=== PATIENT | male | born 1975 | race Caucasian/White ===

== ENCOUNTER 2023-03-10 12:59 | Outpatient (OUT) | payer OTHER, SELFPAY ==
--- NOTE | 2023-03-10 15:56 | PE_ITS ---
[address] [address] Patient Name: EUSEBIO WALLACE MRN: [id number] date: 1975 Sex: M Assigned Patient Location: PETCT Current Patient Location: PETCT Accession/Order Number: [id number] Exam Date: 03/10/2023 15:56 Report Date: 03/12/2023 10:21 At the request of: JOHNATHON ALMARAZ Procedure: PET skull to mid thigh NUCLEAR MEDICINE PET/CT HISTORY: Metastatic disease of unknown primary. COMPARISON: CT neck 01/07/2023. METHOD: 14.7 mCi of F-18 FDG was administered intravenously. PET images were obtained from the skull base through the midthigh levels in the axial plane. Reformatted images were performed in the sagittal and coronal planes. A low-dose, noncontrast CT scan was performed for attenuation correction and anatomical localization. A low dose, noncontrast and nondiagnostic CT scan was performed for attenuation correction and anatomic localization. Mediastinal blood pool SUV max 2.4 using the patient's body weight as the normalization method. FINDINGS: HEAD AND NECK: There is a right level 2A necrotic metabolically active lymph node measuring 2.5 x 2.4 cm with a maximum SUV of 9.2. There is asymmetric metabolic uptake in the right oropharynx/right palatine tonsil. The size of the metabolic uptake is also asymmetrically enlarged comparison to the left. This measures approximately 1.2 x 0.8 x 1.5 cm with a maximum SUV of 12.2. CHEST: There are no metabolically active mediastinal, hilar, or axillary lymph nodes. The major airways are patent. There is no pericardial effusion. There is no evidence of abnormal metabolic uptake in the esophagus. There are coronary artery calcifications. There is no evidence of abnormal metabolic uptake in the lung parenchyma. There are no pleural effusions. There is no pneumothorax. ABDOMEN AND PELVIS: There is no evidence of abnormal metabolic activity in the liver or adrenal glands. There is no evidence of abnormal metabolic active lymph nodes in the abdomen or pelvis. There is no free fluid. There is physiologic uptake in the urinary system and bowel. The liver is fatty. There is a benign left adrenal adenoma. MUSCULOSKELETAL: There is no evidence of abnormal metabolically active bony lesions. IMPRESSION: Metastatic right level 2A necrotic lymph node measuring 2.5 x 2.4 cm. Asymmetric metabolic uptake in the right oropharynx/right palatine tonsil which is suspicious for the patient's primary carcinoma. Recommend correlation with direct visualization. Electronically authenticated by: DANIELA SHANE Date: 03/12/2023 10:21
== END 2023-03-10 13:00 ==
PROVIDERS: PCP Family Medicine; Visit Provider Otolaryngology
DX: C77.0 Secondary and unspecified malignant neoplasm of lymph nodes of head, face and neck (principal)
CPT/HCPCS: 78815; A9552